=== PATIENT | female | born 1975 | race African-American/Black ===

== ENCOUNTER 2017-06-10 20:59 | Emergency (ER) | payer OTHER ==
[~2017-06-10] VITALS: Ht 154.9 cm; Wt 77.1 kg
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
== END 2017-06-10 23:20 | disposition home or self-care (01) ==
LOC: CFTX 20:59 → CED 20:59 → CFTX 23:05
DX: S16.1XXA Strain of muscle, fascia and tendon at neck level, initial encounter (principal); S39.012A Strain of muscle, fascia and tendon of lower back, initial encounter; S29.012A Strain of muscle and tendon of back wall of thorax, initial encounter; V49.40XA Driver injured in collision with unspecified motor vehicles in traffic accident, initial encounter; Y93.89 Activity, other specified; Y92.410 Unspecified street and highway as the place of occurrence of the external cause
CPT/HCPCS: 72040; 72072; 72100; 96372; 99283; J1885